=== PATIENT | female | born 1950 | race Caucasian/White ===

== ENCOUNTER 2025-07-06 13:54 | Emergency (ER) | payer MEDICARE, SELFPAY ==
[2025-07-06 14:02] VITALS: BP 157/72; PULSE 130; RESP 20; TEMP 37.8; O2SAT 93; BMI 27.3
--- NOTE | 2025-07-06 14:04 | EKG_ITS ---
[facility] Test Date: 2025-07-06 Pat Name: LITO LAY Department: Room: - Gender: Female Assurance Specialist: : 1950 Requested By: Ab Molina ([place]) Order Number: [id number] Reading MD: Ab Molina (ERICA) Measurements Intervals Gaines Rate: 130 P: 61 NC: 153 QRS: -43 QRSD: 69 T: 46 QT: 303 QTc: 446 Interpretive Statements SINUS TACHYCARDIA LOW QRS VOLTAGE IN PRECORDIAL LEADS [QRS DEFLECTION < 1.0 mV IN CHEST LEADS] INFERIOR MYOCARDIAL INFARCTION , PROBABLY OLD [40+ ms Q WAVE AND/OR ST/T ABNORMALITY IN II/aVF] ANTEROLATERAL MYOCARDIAL INFARCTION , PROBABLY OLD [40+ ms Q WAVE IN I/aVL/V3-V6] No previous ECG available for comparison /store/S0/[id number].pdf
--- NOTE | 2025-07-06 14:04 | XR_ITS ---
Examination: CT abdomen with intravenous contrast CT pelvis with intravenous contrast 2-D coronal reconstructions 2-D sagittal reconstructions Date and time of exam: July 06, 2025, 1654 hours INDICATIONS: Left lower abdominal pain today. CTDI: vol (mGy) 6.37 DLP: (mGycm) 318 Technique: Multiple axial sections of the abdomen and pelvis have been obtained. 64 slice high-resolution scanner used. 3 mm axial sections have been obtained, post intravenous injection 60 cc Isovue 370 2-D sagittal, coronal reconstructions obtained. Low dose protocols were performed. One or more of the following dose reduction techniques were used; automated exposure control, adjustment of the mA and/or KV according to patient size, use of iterative reconstruction technique. Findings: No focal liver or splenic lesions No gallstones No pancreatic or adrenal mass. Mild renal scarring No renal or ureteral calculi, no hydronephrosis Dense abdominal aortic calcification no aneurysmal dilatation. Normal appendix. Several mildly fluid distended small bowel loops Colonic diverticulosis Acute diverticulitis sigmoid colon axial image 165, no peridiverticular abscess at this time Urinary bladder intact Severe osteopenia IMPRESSION: Acute diverticulitis sigmoid colon, no peridiverticular abscess
--- NOTE | 2025-07-06 14:36 | XR_ITS ---
EXAMINATION: AP chest single view TECHNIQUE: AP upright portable chest single view Date and time: July 06, 2025, 1503 hours INDICATIONS: Sepsis alert today. FINDINGS: Minimal prominence left ventricle. No lobar pneumonia or pulmonary edema. Prominent osteopenia IMPRESSION: No pneumonia identified
--- NOTE | 2025-07-06 14:41 | PD.EDADULT ---
ED General RME/HPI General Chief complaint: Abdominal Pain Stated complaint: LLQ ABD PAIN, CHILLS Time Seen by Provider: 07/06/25 14:34 Arrival date/time: 07/06/25 13:54 CC: Left lower quadrant abdominal pain HPI onset 2 days ago progressive increase in severity patient noted to be tachycardic and febrile upon initial assessment. Patient is taking no [id number] medications for pain relief. Denies painful urination bloody urination constipation diarrhea back pain chest pain shortness of breath or difficulty breathing. Localized pain is 8-9 on a 10 scale. Related Data Home Medications ?Medication ?Instructions ?Recorded ?Confirmed aspirin 81 mg tablet,delayed 81 mg PO HS 01/01/22 01/04/22 release ([place] Aspirin) simvastatin 10 mg tablet 10 mg PO HS 01/01/22 01/04/22 Previous Rx's ?Medication ?Instructions ?Recorded ciprofloxacin HCl 500 mg tablet 500 mg PO BID #14 tabs 07/06/25 (Cipro) dicyclomine 20 mg tablet 20 mg PO BID #20 tabs 07/06/25 metronidazole 500 mg tablet 500 mg PO BID 7 days #14 tabs 07/06/25 ondansetron 4 mg disintegrating 4 mg PO Q8H #10 tabs 07/06/25 tablet Allergies Allergy/AdvReac Type Severity Reaction Status Date / Time amoxicillin Allergy Intermediate Hives Verified 01/04/22 08:36 Review of Systems Review of Systems Narrative Review of Systems: GEN: No fever, no chills, no weight loss EYES: No discharge, no visual changes, no pain HEENT: No ear pain, no congestion, no sore throat PULM: No shortness of breath, no cough, no congestion CV: No chest pain, no dyspnea on exertion, no palpitations GI: No nausea, no vomiting, no diarrhea, + pain, no constipation : No frequency, no urgency, no dysuria MUSC/SKEL: No joint pain, no back pain SKIN: No rash PSYCH: No hallucinations, no depression HEME/LYMPH: No easy bleeding or bruising tendencies NEURO: No weakness, no headache Past Medical History Past Medical History NEUROLOGIC: Negative Neurological Disorders or Seizures CARDIAC: Positive Cardiac Disorders and Hypercholesterolemia; Negative Congestive Heart Failure RESPIRATORY: Negative Chronic Obstructive Pulmonary Disease (COPD) GASTROINTESTINAL: Negative Gastrointestinal Disorders GENITOURINARY: Negative Genitourinary Disorders or Renal Disease MUSCULOSKELETAL: Negative Musculoskeletal Disorders ENT: Positive Cataracts ENDOCRINE: Negative Endocrine Disorders, Diabetes Mellitus Type 1 or Diabetes Mellitus Type 2 HEMATOLOGIC: Negative Blood Disorders OTHER HISTORY: Positive Chicken Pox; Negative Autoimmune Disease, Blood Transfusions, Blood Transfusion Reaction, Anesthesia Reactions, MRSA or Cancer Family History FAMILY HISTORY: Positive Family Cardiac Disorders (HTN DAD) and Family Cancer (MOTHER OVARIAN CANCER) Surgical History SURGICAL: Positive Tubal Ligation Social History SMOKING STATUS: Current every day smoker ED Exam Narrative Physical exam: [General: In mild discomfort but not in any acute distress Head normocephalic HEENT: Eyes pupils are PERRLA EOMs intact all other subsystems of HEENT are within acceptable limits Neck is supple nontender Chest equal chest rise nontender to palpation Respiratory: Clear to auscultation no wheezes crackles or rubs CV: Rate rhythm is regular no murmurs rubs or clicks Abdomen left lower quadrant abdominal pain with reflexive guarding and rebound tenderness. No right lower quadrant upper quadrants or epigastric pain with palpation. Positive bowel sounds all 4 quadrants Back: No CVA tenderness no spinous process tenderness from cervical spine thoracic and lumbar spine Skin: Intact no petechiae rash induration ulceration or crepitus Extremities: Moving all extremity against resistance cap refill less than 2 seconds neurosensory intact Neuro: Awake alert oriented x3 Glascow coma 15 no focal deficits] Course Quality Measures none Orders Category Date Time Status Bedside COVID-19 Antigen Test NOW Care 07/06/25 14:[address] Screening NOW Care 07/06/25 14:05 Completed Supervisor Paper Testing STAT Care 07/06/25 14:35 Completed Continuous Pulse Oximetry STAT Care 07/06/25 14:35 Completed EKG (ED ONLY) *Do not use* NOW Care 07/06/25 14:05 Completed In and Out Catheter X1PRN Care 07/06/25 14:35 Completed Insert IV NOW Care 07/06/25 14:05 Completed Insert IV NOW Care 07/06/25 14:35 Completed NPO STAT Care 07/06/25 14:35 Completed Strict Intake and Output Routine Care 07/06/25 14:[address] abdomen pelvis w con Stat Exams 07/06/25 14:04 Completed EKG (ED Only) Stat Exams 07/06/25 14:04 Draft XR chest 1V Stat Exams 07/06/25 14:36 Completed B-Type Natriuretic Peptide Stat Lab 07/06/25 15:08 Completed Blood Culture (Lab) Stat Lab 07/06/25 15:00 Received CBC Stat Lab 07/06/25 15:08 Completed Comprehensive Metabolic Panel Stat Lab 07/06/25 15:08 Completed Influenza A & B Rapid Panel Stat Lab 07/06/25 15:24 Completed LDH (Lactate Dehydrogenase) Stat Lab 07/06/25 15:08 Completed Lactate (Lactic Acid) Stat Lab 07/06/25 15:08 Completed Lipase Stat Lab 07/06/25 15:08 Completed Magnesium Stat Lab 07/06/25 15:08 Completed Partial Thromboplastin Time Stat Lab 07/06/25 15:08 Completed Phosphorous Stat Lab 07/06/25 15:08 Completed Procalcitonin Stat Lab 07/06/25 15:08 Completed Prothrombin Time with INR Stat Lab 07/06/25 15:08 Completed Troponin I Stat Lab 07/06/25 15:08 Completed Urinalysis, C/S if Indicated Stat Lab 07/06/25 16:34 Completed Urine Culture Stat Lab 07/06/25 16:34 Received Acetaminophen Tab [Tylenol ES Tab] Med 07/06/25 14:04 Discontinued 1,000 mg PO X1 ONE CIPROFLOXACIN/D5w 400 MG IVPB [Cipro Ivpb] Med 07/06/25 18:06 Discontinued 400 mg in 200 ml IV X1 Ciprofloxacin HCl [Ciprofloxacin] Med 07/06/25 18:15 Discontinued 500 mg PO X1 ONE metroNIDAZOLE [Flagyl] Med 07/06/25 18:15 Discontinued 500 mg PO X1 ONE metroNIDAZOLE/NS 500 MG IVPB [Flagyl 500 mg IV] Med 07/06/25 18:06 Discontinued 500 mg in 100 ml IV X1 Oxygen Delivery NOW RT 07/06/25 14:35 Completed Vital Signs Vital signs: Vital Signs Temperature 100.1 F 07/06/25 14:02 Pulse Rate 130 H 07/06/25 14:02 Respiratory Rate 20 07/06/25 14:02 Blood Pressure 157/72 H 07/06/25 14:02 Pulse Oximetry (%) 93 L 07/06/25 14:02 Oxygen Delivery Method Room Air 07/06/25 14:02 Discharge Plan Plan Patient Disposition: HOME (Self Care) Patient condition on transfer: Stable Prescriptions/Referrals Prescriptions/Med Rec: New ciprofloxacin HCl [Cipro] 500 mg tablet 500 mg PO BID Qty: 14 0RF metronidazole 500 mg tablet 500 mg PO BID 7 Days Qty: 14 0RF ondansetron 4 mg tablet,disintegrating 4 mg PO Q8H Qty: 10 0RF dicyclomine 20 mg tablet 20 mg PO BID Qty: 20 0RF No Action simvastatin 10 mg tablet 10 mg PO HS Patient Comments: TAKE 1 TABLET BY MOUTH EVERY DAY IN THE EVENING FOR 90 DAYS aspirin [[place] Aspirin] 81 mg Tablet,Delayed Release (Dr/Ec) 81 mg PO HS Referrals: Mejia Graham MD [Primary Care Provider, Family Practice] - In 1 week Problem List Clinical Impression: Diverticulitis Patient/Caregiver Discharge Instructions Other Activity Instructions:: Take the medications as prescribed if there is worsening of symptoms in spite of the medications the next 2 to 3 days return the emergency room for reevaluation. Education Materials: ED Diverticulitis Print Language: Algerian Stand Alone Forms: Wendy Award Info., Work/School Release, Patient Portal Info Letter PA/INSULATION WORKER INTERIOR SURFACE Supervising Physician PA/INSULATION WORKER INTERIOR SURFACE Supervising Physician: Dale Kline ENP [facility] Clinical Information Provided by: patient Medical Records reviewed [facility] Meds/Rx considered, not ordered None Labs/Rad/Tests considered, not ordered None Chronic Illness/Social Conditions Explain: Hyperlipidemia hypertension Labs Labs: interpreted by pa Lab(s) Interpretation(s): CBC shows leukocytosis of 15.8 no anemia no thrombocytopenia Coags within acceptable limits CMP shows no significant electrolyte imbalances renal impairment transaminitis or T. bili elevation Troponin is undetectable BNP is within acceptable limits Influenza A and B are negative Imaging Imaging interpretation: interpreted by me Imaging Interpretation(s): Chest x-ray is negative CT abdomen pelvis shows acute diverticulitis. Medication Administration(s) Medication Administration History Discontinued Medications Acetaminophen (Acetaminophen 500 Mg Tablet) 1,000 mg PO X1 ONE Stop: 07/06/25 14:05 Last Admin: 07/06/25 14:12 Dose: Not Given Documented By: Non-Admin Reason: Patient Refused Ciprofloxacin (Ciprofloxacin Hcl 250 Mg Tablet) 500 mg PO X1 ONE Stop: 07/06/25 18:16 Last Admin: 07/06/25 18:32 Dose: 500 mg Documented By: ED Ciprofloxacin/Dextrose (Cipro Ivpb) 400 mg in 200 mls @ 200 mls/hr IV X1 ONE Stop: 07/06/25 19:05 Metronidazole (Flagyl 500 Mg Iv) 500 mg in 100 mls @ 100 mls/hr IV X1 ONE Stop: 07/06/25 19:05 Metronidazole (Metronidazole 250 Mg Tablet) 500 mg PO X1 ONE Stop: 07/06/25 18:16 Last Admin: 07/06/25 18:32 Dose: 500 mg Documented By: ED Diagnosis Differential Diagnosis ED Complaint MDM: Diverticulosis diverticulitis ileus perforation
[2025-07-06 15:00] VITALS: BP 136/89; PULSE 115; RESP 16; TEMP 37.6; O2SAT 94
--- NOTE | 2025-07-06 15:00 | PC.NURSE ---
Pt. here from home to room 1, pt.'s granddaughter is bedside, pt. states she has left lower abdominal pain X 2 days, pt. denies any nausea or vomiting. Pt. states when she pooped this morning it was goat fran. Pt. states yesterday she took a Dulcolax because the last good poop she had was 4 days ago. No s/s of distress at this time.
[2025-07-06 15:17] LABS: Lactate (Lactic Acid) 1.1 mMol/L (0.4-2.0)
[2025-07-06 15:26] LABS: Basophils # (Auto) 0.1 Thou/mm3 (0.0-0.2); Basophils % (Auto) 0 % (0-2.5); Eosinophils # (Auto) 0.0 Thou/mm3 (0.0-0.5); Eosinophils % (Auto) 0 % (0-10); Hematocrit 43.5 % (36.0-46.0); Hemoglobin 14.9 g/dL (12.0-16.0); Immature Granulocytes Auto 0.05 Thou/mm3 (0.00-0.00); Lymphocytes # (Auto) 1.4 Thou/mm3 (1.0-4.8); Lymphocytes % (Auto) 9 % (10-50); Mean Corpuscular HGB Conc 34.3 g/dl (31.0-37.0); Mean Corpuscular Hemoglobin 30.5 pg (25.0-35.0); Mean Corpuscular Volume 89 fL (80-100); Monocytes # (Auto) 1.0 Thou/mm3 (0.0-0.8); Monocytes % (Auto) 6 % (0-12); Neutrophils # (Auto) 13.3 Thou/mm3 (1.8-7.7); Neutrophils % (Auto) 84 % (37-80); Nucleated Red Blood Cell # 0.00 Thou/mm3 (0.00-0.00); Nucleated Red Blood Cell % 0 /100 WBC (0); Platelet Count 257 Thou/mm3 (140-440); RDW Standard Deviation 43.4 fL (36.4-46.3); Red Blood Count 4.88 Miln/mm3 (4.00-5.20); White Blood Count 15.8 Thou/mm3 (3.6-11.0)
[2025-07-06 15:38] LABS: B-Type Natriuretic Peptide 25 pg/mL (0-100)
[2025-07-06 15:48] LABS: Alanine Aminotransferase 14 U/L (10-49); Albumin, Serum 4.8 gm/dL (3.4-4.8); Albumin/Globulin Ratio 2.5 (1.2-2.2); Alkaline Phosphatase 80 U/L (46-116); Anion Gap 12 (7-16); Aspartate Amino Transferase 19 U/L (0-34); BUN/Creatinine Ratio 8 Ratio (12-20); Bilirubin,Total 0.4 mg/dL (0.3-1.2); Blood Urea Nitrogen < 5 mg/dL (9-23); Calcium 9.7 mg/dL (8.3-10.6); Calcium (Corrected) 9.7 mg/dL (8.5-10.1); Carbon Dioxide 21.2 mMol/L (20.0-31.0); Chloride 107 mMol/L (98-107); Creatinine (Component) 0.6 mg/dL (0.6-1.3); Estimated Creatinine Clearance 66.4 mL/min (>60); Globulin 1.9 gm/dL (2.3-3.5); Glucose 110 mg/dL (74-106); LDH (Lactate Dehydrogenase) 192 U/L (120-246); Lipase 35 U/L (12-53); Magnesium 2.0 mg/dL (1.6-2.6); Osmolality,Calculated 277 (275-295); Phosphorous 2.8 mg/dL (2.4-5.1); Potassium 3.7 mMol/L (3.4-5.1); Procalcitonin 0.34 ng/ml (0.0-0.49); Sodium 140 mMol/L (136-145); Total Protein 6.7 gm/dL (5.7-8.2); Troponin I < 0.002 ng/mL (0.0-0.045); eGFR > 60 See Note
[2025-07-06 15:48] LABS: Influenza A Ag Negative; Influenza B Ag Negative
[2025-07-06 15:58] LABS: INR 1.0 (0.9-1.3); Partial Thromboplastin Time 28.8 Seconds (22.0-36.0); Prothrombin Time 10.4 Seconds (9.0-12.2)
[2025-07-06 16:21] VITALS: BP 136/89; PULSE 116; RESP 16; O2SAT 92
[2025-07-06 16:41] LABS: Collection Type, Urine Clean Catch
[2025-07-06 16:49] LABS: Bilirubin,Urine Negative (Negative); Blood,Urine Negative (Negative); Clarity,Urine Clear (Clear/Hazy); Color,Urine Lt-Yellow (Lt Yel-Yel); Culture Indicated,Urine Not Indicated; Glucose, Urine Negative (Negative); Ketones,Urine 1+ (Negative); Leukocyte Esterase,Urine Positive (Negative); Nitrite,Urine Negative (Negative); PH,Urine 5.5 (5.0-7.0); Protein,Urine Negative (Neg - Trace); RBC,Urine < 1 /hpf (0-3); Specific Gravity,Urine 1.011 (1.001-1.035); Squamous Epithelial Cell,Urine 1 /hpf (0-5); Urobilinogen,Urine Negative mg/dL (0.0-1.0); WBC,Urine 1 /hpf (0-5)
[2025-07-06 18:18] VITALS: BP 155/81; PULSE 100; RESP 18; TEMP 36.7; O2SAT 95
[2025-07-06] MEDS: CIPROFLOXACIN HCL 250 MG TABLET 500 MG PO (18:32)
[2025-07-06 18:41] VITALS: BP 140/97; PULSE 100; RESP 17; O2SAT 95
== END 2025-07-06 18:43 | disposition home or self-care (01) ==
PROVIDERS: Nurse Practitioner Primary Care; Registered Nurse General Practice; Emergency Provider Emergency Medicine; PCP Family Medicine
DX: K57.32 Diverticulitis of large intestine without perforation or abscess without bleeding (principal); E78.5 Hyperlipidemia, unspecified; I10 Essential (primary) hypertension
CPT/HCPCS: 36415; 71045; 74177; 80053; 81001; 83605; 83615; 83690; 83735; 83880; 84100; 84145; 84484; 85025; 85610; 85730; 87040; 87086; 87502; 87811; 93005; 99284; A4649; Q9967; A9270